=== PATIENT | female | born 1995 | race Caucasian/White ===

== ENCOUNTER 2017-04-16 07:33 | Emergency (ER) | payer MEDICAID ==
[~2017-04-16] VITALS: Ht 157.5 cm; Wt 67.6 kg
[2017-04-16 07:44] VITALS: BP 128/80
--- NOTE | 2017-04-16 07:47 | NUR ---
Pt taken to bed 5.
--- NOTE | 2017-04-16 07:49 | NUR ---
Note undone in EDM - 04/16/17 at 0942 by [email or web address] PT PRESENTS TO ER W/C/O LEFT SHOULDER AND LEFT THIGH PAIN. PT DENIES ANY MEDICAL PATIENT PRESENTS TO ED WITH . PT STATES . DENIES N/V/D; SKIN IS PINK/WARM/DRY; AAOX4 WITH EVEN AND STEADY GAIT; LUNGS CLEAR BL; HR EVEN AND REGULAR; PT DENIES ANY FEVER, CP, SOB, OR COUGH AT THIS TIME; PATIENT STATES PAIN OF 9/10 AT THIS TIME; VSS; PATIENT POSITIONED FOR COMFORT; HOB ELEVATED; BEDRAILS UP X2; BED DOWN. ER MD MADE AWARE OF PT STATUS.
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
--- NOTE | 2017-04-16 08:15 | NUR ---
RODERICK EVERETT EVALUTING PT AT BEDTIME Addendum: 04/16/17 at 0950 by [email or web address] PT STS PAIN NOW 12/06
[2017-04-16 09:24] VITALS: BP 109/70
--- NOTE | 2017-04-16 09:24 | NUR ---
Patient discharged with v/s stable. Written and verbal after care instructions given and explained. Patient verbalized understanding. Ambulatory with steady gait. All questions addressed prior to discharge. Advised to follow up with PMD.
== END 2017-04-16 09:24 | disposition home or self-care (01) ==
LOC: MED 07:33
DX: S43.52XA Sprain of left acromioclavicular joint, initial encounter (principal); S66.912A Strain of unspecified muscle, fascia and tendon at wrist and hand level, left hand, initial encounter; S76.912A Strain of unspecified muscles, fascia and tendons at thigh level, left thigh, initial encounter; V49.9XXA Car occupant (driver) (passenger) injured in unspecified traffic accident, initial encounter; Y93.I9 Activity, other involving external motion; Y92.488 Other paved roadways as the place of occurrence of the external cause; Y99.8 Other external cause status
CPT/HCPCS: 99283